=== PATIENT | male | born 1930 | race Caucasian/White ===

== ENCOUNTER 2016-06-27 09:26 | Inpatient (IN) | payer MEDICARE, BC ==
[~2016-06-27] VITALS: Ht 180.3 cm; Wt 78.0 kg
[~2016-06-27 09:26] MED LIST: AMOXICOT500 MG PO; ASPIRIN CHILDRE81 M1 PO; PRAVACHOL40 MG PO; ZINC SULFATE 2220 MG PO
[2016-06-27 09:36] VITALS: BP 144/75
[2016-06-27 10:12] LABS: LYMPH # 0.5 K/mm3 (0.7-4.5)
[2016-06-27 10:21] LABS: HEMOGLOBIN 14.1 g/dL (14.1-18.0)
[2016-06-27 10:34] LABS: FREE THYROXIN INDEX 5.6 ug/dl (5.93-13.13)
--- NOTE | 2016-06-27 10:47 | Emergency Room Report ---
History of Present Illness Time Seen by [id number] Presenting Problem in Triage Pt arrived:Wheelchair Presenting Problem:WEAK, FELL ON MONDAY WHILE WORKING OUTSIDE. WAS NOT FOUND UNTIL 45-60 MIN AFTER. 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 N Clinical Suspician of Infection? N Mental Status: 1 - Regular (Normal Baseline) Sepsis Risk:Low Sepsis Risk Have you (or family members/close friends) recently traveled outside the [place]? N If Yes, where/when: Have you had exposure to infectious disease within the past month? N TB? Other? Specify: Source patient, RN notes reviewed, family, RN/MD Exam Limitations no limitations Comment This is an 86-year-old gentleman brought into the emergency room by family with generalized weakness since Monday. According to family the patient was working outside, around the house on Monday when he fell and he was unable to get back on his feet, due to the extreme generalized weakness. He was found 45-60 minutes later and family noticed some slurred speech, and had no notable neurological deficits at that time. Since this event as the patient has been extremely weak and remained mostly bedridden. ALLERGIES Coded Allergies: No Known Allergies (06/25/16) Home Medications Active Scripts Amoxicillin (Amoxicillin 500MG) 500 MG PO TID #30 CAP Prov: 06/25/16 Reported Medications Aspirin 81 MG PO DAILY Zinc Sulfate (Zinc Sulfate 220MG) 220 MG PO DAILY Pravastatin Sodium (Pravachol) 40 MG PO QHS #30 Famotidine 40 MG PO BID #60 TAB Levothyroxine Sodium (Levothyroxine 0.025MG) 0.025 MG PO DAILY #30 TAB History Medical History General Angina: No [place]: No Hypertension? No Hyperlipidemia? Yes CHF? No COPD? No Asthma? No Hernia? Yes Thyroid Problems? No Hypothyroidism? No CVA? No Seizures? No Diabetes? No UTI? No Stones? No GB Disease: No Hepatitis? No Cataracts? No Glaucoma? No MRSA? No TB? No Cancer? Yes Site: PROSTATE [place] Immunization Hx DT/Tetanus UNKNOWN Flu THIS YR Pneumonia NEVER Surgical Hx Previous Surgery?Y LT ING HERNIA REPAIR SEED IMPLANT FOR PROSTATE [place] Family History Family Hx Diabetes Yes CAD No Hypertension No Hyperlipidemia No Cancer No TB No Social History Smoking Hx Smoker: Never Smoker Tobacco: No Alcohol Alcohol: No Review of Systems All Other Systems Reviewed and Negative Psychiatric/Neurological weakness Physical Exam Vital Signs Vital Signs Date Time Temp Pulse Resp B/P Pulse O2 O2 Flow FiO2 Ox Delivery Rate 06/27 1241 92 06/27 1241 98.4 92 18 155/85 06/27 1241 98.4 92 18 155/85 98 ROOM AIR 06/27 1241 98 ROOM AIR 06/27 1150 98.9 92 16 138/75 96 06/27 1107 98.9 92 16 138/75 96 06/27 1023 98.4 96 16 137/71 94 06/27 0936 99.1 102 16 144/75 96 General Appearance normal appearance, WD/WN, mild distress Neck normal inspection, non-tender, supple, full range of motion Respiratory Status Yes: trachea midline, chest symmetrical, non tender chest. No: respiratory distress. Lung Sounds bilateral: normal breath sounds, lungs clear. Cardiovascular normal exam, regular rate/rhythm, no peripheral edema, no gallop, no JVD, no murmur, no rub, normal peripheral pulses Peripheral Pulses Pulses normal Yes Extremities non-tender, normal range of motion, normal inspection Neurologic alert, automatic presser II-XII nml as tested, normal exam, oriented x 3 Mental status normal mood/affect Skin intact, normal color, warm/dry Medical Decision Making LABS/Meds/Orders Pt receiving controlled substance in ED? No Comment 10.45am-case discussed with Dr. Ware, advised of patient's presentation, workup results, vital signs, inability to stand and walk. Dr. Ware agreed with admission, and required additional tests to be ordered. Case started over to Dr. Ware at this time. I will write temporary bridge admit orders, per hospital policy. Upon patient's arrival to the floor, clinical unit educator/nurse will call Dr. Ware for full inpatient admit orders. Results/Orders Laboratory Tests 06/27/16 1125: Creatine Kinase 38655 H, CK-MB (CK-2) Rel Index 0.1, CK and CKMB Interp 23.3 *H , Troponin I 0.16 H 06/27/16 1115: Urine Color DK YELLOW, Urine Appearance SL CLOUDY, Urine pH 5.5, Ur Specific [place] >= 1.030, Urine Protein 2+ H, Urine Ketones TRACE H, Urine Blood 3+ H , Urine Nitrate NEGATIVE, Urine Bilirubin NEGATIVE, Urine Urobilinogen 0.2, Ur Leukocyte Esterase NEGATIVE, Urine RBC OCC, Urine WBC 3-5, Ur Squamous Epith Cells 3-5, Urine Bacteria 4+, Urine Mucus 1+, Urine Glucose NEGATIVE 06/27/16 1055: Chlamy pneum (TEM-PCR) NOT DETECTED, Adenovirus (PCR) NOT DETECTED, B. pertussis DNA (PCR) NOT DETECTED, Coronavirus OC43 (PCR) NOT DETECTED, Coronavirus HKU1 ( PCR) NOT DETECTED, Coronavirus 229E (PCR) NOT DETECTED, Coronavirus NL63 (PCR) NOT DETECTED, Human Metapneumovirus NOT DETECTED, Influenza A (H1) PCR NOT DETECTED, Influ A (H1N1/09) PCR NOT DETECTED, Influenza A (H3) PCR NOT DETECTED, Influenza Type A (PCR) NOT DETECTED, Influenza Type B (PCR) NOT DETECTED, M. pneumoniae (PCR) NOT DETECTED, Parainfluenza 1 (PCR) NOT DETECTED, Parainfluenza 2 (PCR) DETECTED H, Parainfluenza 3 (PCR) NOT DETECTED, Parainfluenza 4 (PCR) NOT DETECTED, RSV (PCR) NOT DETECTED, Entero/Rhino (PCR) NOT DETECTED 06/27/16934: TSH 2.86, Free T4 Index 5.6 L, Thyroxine (T4) 6.8, T3 Uptake 33 06/27/16934: Creatine Kinase 40269 H, CK-MB (CK-2) Rel Index 0.1, CK and CKMB Interp 23.4 *H , Myoglobin Pending, Troponin I 0.16 H 06/27/16934: Amylase 42, Lipase 78, Monoscreen NEGATIVE 06/27/16934: Sodium 140, Potassium 3.9, Chloride 107, Carbon Dioxide 26, BUN 23 H, Creatinine 1.2, Estimated Creat Clear 48 L, Estimated GFR (MDRD) 58, Glucose 149 H, Calcium 7.9 L, Total Bilirubin 0.6, AST 438 *H, ALT 149 H, Alkaline Phosphatase 66, Total Protein 6.1 L, Albumin 3.1 L, Globulin 3.0, Albumin/ Globulin Ratio 1.0 L, WBC 15.6 H, RBC 4.47 L, Hgb 14.1, Hct 40.6 L, MCV 90.9 , RDW 13.7, Plt Count 140 L, MPV 9.5, Gran % 92.4 H, Gran # 14.5 H, Total Counted 100, Lymphocytes % 3.0 L, Monocytes % 4.1, Eosinophils % 0.0 L, Basophils % 0.5, Neutrophils 94 H, Band Neutrophils 1, Lymphocytes (Manual) 3 L, Lymphocytes # 0.5 L, Monocytes (Manual) 2, Monocytes # 0.6, Eosinophils # 0.0, Basophils # 0.1, RBC/WBC/PLT Morphology NORMAL, Platelet Estimate NORMAL, PUBS MCHC 34.7, MCH 31.5 H, Hepatitis A Ab Total REACTIVE H, Hep Bs Antigen NON-REACTIVE, Hep Bs Antibody NON-REACTIVE, Hep B Core Total Ab NON-REACTIVE, Hepatitis C Antibody NON-REACTIVE, Salicylates 0.3 L, Acetaminophen 0 L Current Medication Orders Sig/Olena Start time Last Medication Dose Route Stop Time Status Admin Sodium Chloride 10 ML PRN PRN 06/27 1045 DC IV 06/28 1044 Sodium Chloride 10 ML PRN PRN 06/27 0945 AC 06/29 IV 0037 Orders Procedure Date/time Status CARDIAC ENZYMES 06/27 1999 Complete ADMITTED PT IS ACTUALLY IN BED 06/27 1314 Active 12 LEAD EKG-JACQUE (INITIAL) 06/27 1204 Active ELECTROCARDIOGRAM REQUEST 06/27 1128 Active CARDIAC ENZYMES 06/27 1128 Complete Decision to admit 06/27 1118 Active CULTURE, URINE 06/27 1115 Complete UPPER RESPIRATORY PANEL, PCR 06/27 1107 Complete SALICYLATE 06/27 1107 Complete Acetaminophen 06/27 1107 Complete MONO SCREEN 06/27 1106 Complete HEPATITIS PROFILE (A,B,&C) 06/27 1106 Complete URINALYSIS/COMPLETE 06/27 1045 Complete LIPASE 06/27 1045 Complete AMYLASE 06/27 1045 Complete MYOGLOBIN 06/27 1044 Active CARDIAC ENZYMES 06/27 1044 Active IV SALINE LOCK 06/27 1013 Active THYROID PANEL 2 (WITH TSH) 06/27 0946 Complete CBC WITH AUTO DIFF 06/27 0945 Complete CHEM 12 PROFILE 06/27 0945 Complete DIFFERENTIAL-WBC 06/27 0935 Complete VITAL SIGNS 06/27 UNK Active POM NURSE NANCY HOSE ORDER 06/27 UNK Active CODE STATUS 06/27 UNK Active PATIENT ACTIVITY ORDER 06/27 UNK Active CM/EKG CM/sys dir 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 of ischemic chgs, no ectopy, normal QRS, normal DC, no EKG for comparison, non-spec. ST/Twave chgs, ST elevation, ST depression, LBBB, RBBB, ectopy, abnormal Q waves XRAY/CT/US XRAY/CT/US XRAY chest XR interpretation by reviewed by me Xray Results no infiltrates, normal heart size, normal lung inflation chanel Departure Departure Time of Disposition 1109 Disposition Still a Patient Clinical Impression Primary Impression: Weakness generalized Secondary Impressions: Abnormal liver function tests Condition STABLE Referrals Arnaldo Ware MD (Family) ED Critical Care Critical Care No at 1021
--- NOTE | 2016-06-27 10:47 | Emergency Room Report ---
History of Present Illness Time Seen by [id number] Presenting Problem in Triage Pt arrived:Wheelchair Presenting Problem:WEAK, FELL ON MONDAY WHILE WORKING OUTSIDE. WAS NOT FOUND UNTIL 45-60 MIN AFTER. 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 N Clinical Suspician of Infection? N Mental Status: 1 - Regular (Normal Baseline) Sepsis Risk:Low Sepsis Risk Have you (or family members/close friends) recently traveled outside the [place]? N If Yes, where/when: Have you had exposure to infectious disease within the past month? N TB? Other? Specify: Source patient, RN notes reviewed, family, RN/MD Exam Limitations no limitations Comment This is an 86-year-old gentleman brought into the emergency room by family with generalized weakness since Monday. According to family the patient was working outside, around the house on Monday when he fell and he was unable to get back on his feet, due to the extreme generalized weakness. He was found 45-60 minutes later and family noticed some slurred speech, and had no notable neurological deficits at that time. Since this event as the patient has been extremely weak and remained mostly bedridden. ALLERGIES Coded Allergies: No Known Allergies (06/25/16) Home Medications Active Scripts Amoxicillin (Amoxicillin 500MG) 500 MG PO TID #30 CAP Prov: 06/25/16 Reported Medications Aspirin 81 MG PO DAILY Zinc Sulfate (Zinc Sulfate 220MG) 220 MG PO DAILY Pravastatin Sodium (Pravachol) 40 MG PO QHS #30 Famotidine 40 MG PO BID #60 TAB Levothyroxine Sodium (Levothyroxine 0.025MG) 0.025 MG PO DAILY #30 TAB History Medical History General Angina: No [place]: No Hypertension? No Hyperlipidemia? Yes CHF? No COPD? No Asthma? No Hernia? Yes Thyroid Problems? No Hypothyroidism? No CVA? No Seizures? No Diabetes? No UTI? No Stones? No GB Disease: No Hepatitis? No Cataracts? No Glaucoma? No MRSA? No TB? No Cancer? Yes Site: PROSTATE [place] Immunization Hx DT/Tetanus UNKNOWN Flu THIS YR Pneumonia NEVER Surgical Hx Previous Surgery?Y LT ING HERNIA REPAIR SEED IMPLANT FOR PROSTATE [place] Family History Family Hx Diabetes Yes CAD No Hypertension No Hyperlipidemia No Cancer No TB No Social History Smoking Hx Smoker: Never Smoker Tobacco: No Alcohol Alcohol: No Review of Systems All Other Systems Reviewed and Negative Psychiatric/Neurological weakness Physical Exam Vital Signs Vital Signs Date Time Temp Pulse Resp B/P Pulse O2 O2 Flow FiO2 Ox Delivery Rate 06/27 1241 92 06/27 1241 98.4 92 18 155/85 06/27 1241 98.4 92 18 155/85 98 ROOM AIR 06/27 1241 98 ROOM AIR 06/27 1150 98.9 92 16 138/75 96 06/27 1107 98.9 92 16 138/75 96 06/27 1023 98.4 96 16 137/71 94 06/27 0936 99.1 102 16 144/75 96 General Appearance normal appearance, WD/WN, mild distress Neck normal inspection, non-tender, supple, full range of motion Respiratory Status Yes: trachea midline, chest symmetrical, non tender chest. No: respiratory distress. Lung Sounds bilateral: normal breath sounds, lungs clear. 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 No Comment 10.45am-case discussed with Dr. Ware, advised of patient's presentation, workup results, vital signs, inability to stand and walk. Dr. Ware agreed with admission, and required additional tests to be ordered. Case started over to Dr. Ware at this time. I will write temporary bridge admit orders, per hospital policy. Upon patient's arrival to the floor, unit director/nurse will call Dr. Ware for full inpatient admit orders. Results/Orders Laboratory Tests 06/27/16 1125: Creatine Kinase 80553 H, CK-MB (CK-2) Rel Index 0.1, CK and CKMB Interp 23.3 *H , Troponin I 0.16 H 06/27/16 1115: Urine Color DK YELLOW, Urine Appearance SL CLOUDY, Urine pH 5.5, Ur Specific [place] >= 1.030, Urine Protein 2+ H, Urine Ketones TRACE H, Urine Blood 3+ H , Urine Nitrate NEGATIVE, Urine Bilirubin NEGATIVE, Urine Urobilinogen 0.2, Ur Leukocyte Esterase NEGATIVE, Urine RBC OCC, Urine WBC 3-5, Ur Squamous Epith Cells 3-5, Urine Bacteria 4+, Urine Mucus 1+, Urine Glucose NEGATIVE 06/27/16 1055: Chlamy pneum (TEM-PCR) NOT DETECTED, Adenovirus (PCR) NOT DETECTED, B. pertussis DNA (PCR) NOT DETECTED, Coronavirus OC43 (PCR) NOT DETECTED, Coronavirus HKU1 ( PCR) NOT DETECTED, Coronavirus 229E (PCR) NOT DETECTED, Coronavirus NL63 (PCR) NOT DETECTED, Human Metapneumovirus NOT DETECTED, Influenza A (H1) PCR NOT DETECTED, Influ A (H1N1/09) PCR NOT DETECTED, Influenza A (H3) PCR NOT DETECTED, Influenza Type A (PCR) NOT DETECTED, Influenza Type B (PCR) NOT DETECTED, M. pneumoniae (PCR) NOT DETECTED, Parainfluenza 1 (PCR) NOT DETECTED, Parainfluenza 2 (PCR) DETECTED H, Parainfluenza 3 (PCR) NOT DETECTED, Parainfluenza 4 (PCR) NOT DETECTED, RSV (PCR) NOT DETECTED, Entero/Rhino (PCR) NOT DETECTED 06/27/16934: TSH 2.86, Free T4 Index 5.6 L, Thyroxine (T4) 6.8, T3 Uptake 33 06/27/16934: Creatine Kinase 41161 H, CK-MB (CK-2) Rel Index 0.1, CK and CKMB Interp 23.4 *H , Myoglobin Pending, Troponin I 0.16 H 06/27/16934: Amylase 42, Lipase 78, Monoscreen NEGATIVE 06/27/16934: Sodium 140, Potassium 3.9, Chloride 107, Carbon Dioxide 26, BUN 23 H, Creatinine 1.2, Estimated Creat Clear 48 L, Estimated GFR (MDRD) 58, Glucose 149 H, Calcium 7.9 L, Total Bilirubin 0.6, AST 438 *H, ALT 149 H, Alkaline Phosphatase 66, Total Protein 6.1 L, Albumin 3.1 L, Globulin 3.0, Albumin/ Globulin Ratio 1.0 L, WBC 15.6 H, RBC 4.47 L, Hgb 14.1, Hct 40.6 L, MCV 90.9 , RDW 13.7, Plt Count 140 L, MPV 9.5, Gran % 92.4 H, Gran # 14.5 H, Total Counted 100, Lymphocytes % 3.0 L, Monocytes % 4.1, Eosinophils % 0.0 L, Basophils % 0.5, Neutrophils 94 H, Band Neutrophils 1, Lymphocytes (Manual) 3 L, Lymphocytes # 0.5 L, Monocytes (Manual) 2, Monocytes # 0.6, Eosinophils # 0.0, Basophils # 0.1, RBC/WBC/PLT Morphology NORMAL, Platelet Estimate NORMAL, PUBS MCHC 34.7, MCH 31.5 H, Hepatitis A Ab Total REACTIVE H, Hep Bs Antigen NON-REACTIVE, Hep Bs Antibody NON-REACTIVE, Hep B Core Total Ab NON-REACTIVE, Hepatitis C Antibody NON-REACTIVE, Salicylates 0.3 L, Acetaminophen 0 L Current Medication Orders Sig/Olena Start time Last Medication Dose Route Stop Time Status Admin Sodium Chloride 10 ML PRN PRN 06/27 1045 DC IV 06/28 1044 Sodium Chloride 10 ML PRN PRN 06/27 0945 AC 06/29 IV 0037 Orders Procedure Date/time Status CARDIAC ENZYMES 06/27 1999 Complete ADMITTED PT IS ACTUALLY IN BED 06/27 1314 Active 12 LEAD EKG-JACQUE (INITIAL) 06/27 1204 Active ELECTROCARDIOGRAM REQUEST 06/27 1128 Active CARDIAC ENZYMES 06/27 1128 Complete Decision to admit 06/27 1118 Active CULTURE, URINE 06/27 1115 Complete UPPER RESPIRATORY PANEL, PCR 06/27 1107 Complete SALICYLATE 06/27 1107 Complete Acetaminophen 06/27 1107 Complete MONO SCREEN 06/27 1106 Complete HEPATITIS PROFILE (A,B,&C) 06/27 1106 Complete URINALYSIS/COMPLETE 06/27 1045 Complete LIPASE 06/27 1045 Complete AMYLASE 06/27 1045 Complete MYOGLOBIN 06/27 1044 Active CARDIAC ENZYMES 06/27 1044 Active IV SALINE LOCK 06/27 1013 Active THYROID PANEL 2 (WITH TSH) 06/27 0946 Complete CBC WITH AUTO DIFF 06/27 0945 Complete CHEM 12 PROFILE 06/27 0945 Complete DIFFERENTIAL-WBC 06/27 0935 Complete VITAL SIGNS 06/27 UNK Active POM NURSE NANCY HOSE ORDER 06/27 UNK Active CODE STATUS 06/27 UNK Active PATIENT ACTIVITY ORDER 06/27 UNK Active CM/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 of ischemic chgs, no ectopy, normal QRS, normal CA, no EKG for comparison, non-spec. ST/Twave chgs, ST elevation, ST depression, LBBB, RBBB, ectopy, abnormal Q waves XRAY/CT/US XRAY/CT/US XRAY chest XR interpretation by reviewed by me Xray Results no infiltrates, normal heart size, normal lung inflation chanel Departure Departure Time of Disposition 1109 Disposition Still a Patient Clinical Impression Primary Impression: Weakness generalized Secondary Impressions: Abnormal liver function tests Condition STABLE Referrals Arnaldo Ware MD (Family) ED Critical Care Critical Care No at 1027
[2016-06-27 10:50] LABS: NEUTROPHILS 94 % (42-76)
[2016-06-27 11:10] LABS: CORONAVIRUS 229E NOT DETECTED (NOT DETECTE); CORONAVIRUS HKU 1 NOT DETECTED (NOT DETECTE); CORONAVIRUS NL63 NOT DETECTED (NOT DETECTE); CORONAVIRUS OC43 NOT DETECTED (NOT DETECTE); RHINOVIRUS/ENTEROVIRUS NOT DETECTED (NOT DETECTE)
[2016-06-27 11:43] LABS: URINE BILIRUBIN - DIPSTICK NEGATIVE (NEG); URINE BLOOD 3+ (NEG)
[2016-06-27 12:41] VITALS: BP 155/85
[2016-06-27 16:28] VITALS: BP 136/62
--- NOTE | 2016-06-27 17:19 | HISTORY AND PHYSICAL REPORT ---
Demographics: Admit date: 06/27/16 Chief complaint: Weakness PRIMARY DIAGNOSIS: rhabdomyolysis Allergies: Coded Allergies: No Known Allergies (06/25/16) History of present illness: History of present illness: 86-year-old male presented to the emergency department for the second time in 72 hours today with increasing weakness and inability to ambulate. Patient initially was seen in the emergency department on June 25 after a fall. The patient had been outside at his residence when he fell and was unable to get back up. He was found by family member after being down for about 45 minutes. He presented to the emergency department and underwent evaluation. Please refer to that note for full details. Patient was ultimately diagnosed with pharyngitis and discharged with amoxicillin. He spent his first night at home with family members. On Monday he continued to have increasing weakness and multiple falls. He returns today after his weakness was not improving. This time in the emergency department he was found to have elevated creatinine kinase as well as elevated liver function tests. Details of the fall are unclear as patient does not quite remember what happened. He fell in his yard. He does not remember whether he landed directly on his LEFT side possibly traumatizing the liver or not. Prior to these falls he has been relatively steady on his feet at home and denies any previous falls. Apparently the patient does shuffle his feet when walking but this has not prevented him from being able to mow his yard and weedeater is recently as this summer. Past medical history: Family HX Family Hx Insignificant No Diabetes Yes CAD No Hypertension No Hyperlipidemia No Cancer No TB No Immunization HX DT/Tetanus UNKNOWN Flu 2015-FSN Pneumonia NEVER TB Test in last year No General CAD? No Angina: No [place]: No Hypertension? No Hyperlipidemia? Yes CHF? No DVT? No PE? No COPD? No Asthma? No Anemia? No GERD? Yes Gastric ulcers? No GI Bleed? No Hernia? No Thyroid Problems? No Hypothyroidism? No CVA? No Seizures? No Diabetes? No Renal Insuffiency? No UTI? No Stones? No BPH? Yes GB Disease: No Nephritic Syndrome? No Asplenia? No Hepatitis? No Sickle Cell Disease? No Arthritis? No Migraines? No Cataracts? No Glaucoma? No MRSA? No HIV? No TB? No Anxiety? No Depression? No Cancer? Yes Site: PROSTATE More? No Past Surgical HX Previous Surgery?Y LT ING HERNIA REPAIR SEED IMPLANT FOR PROSTATE CA Current home meds: Active Scripts Amoxicillin (Amoxicillin 500MG) 500 MG PO TID #30 CAP Prov: 06/25/16 Reported Medications Pravastatin Sodium (Pravachol) 40 MG PO QHS #30 Aspirin (Aspirin, Chewable) 81 MG PO DAILY Zinc Sulfate (Zinc Sulfate 220MG) 220 MG PO DAILY Social Hx: Smoking HX Tobacco No Alcohol Alcohol: No Hx of Drug Use Drug Use? No Patien't marital status is Review of systems: Constitutional No: chills, diaphoresis, fever, malaise. Ears, Nose, Mouth, Throat throat pain Respiratory cough. Cardiovascular no symptoms reported Gastrointestinal/Abdominal no symptoms reported Genitourinary no symptoms reported. Musculoskeletal see HPI. Neurological Yes: no symptoms reported. Exam: Lab data for last 24 hours: Laboratory Tests 06/27/16 1125: Creatine Kinase 85249 H, CK-MB (CK-2) Rel Index 0.1, CK and CKMB Interp 23.3 *H , Troponin I 0.16 H 06/27/16 1115: Urine Color DK YELLOW, Urine Appearance SL CLOUDY, Urine pH 5.5, Ur Specific [place] >= 1.030, Urine Protein 2+ H, Urine Ketones TRACE H, Urine Blood 3+ H , Urine Nitrate NEGATIVE, Urine Bilirubin NEGATIVE, Urine Urobilinogen 0.2, Ur Leukocyte Esterase NEGATIVE, Urine RBC OCC, Urine WBC 3-5, Ur Squamous Epith Cells 3-5, Urine Bacteria 4+, Urine Mucus 1+, Urine Glucose NEGATIVE 06/27/16 1055: Chlamy pneum (TEM-PCR) NOT DETECTED, Adenovirus (PCR) NOT DETECTED, B. pertussis DNA (PCR) NOT DETECTED, Coronavirus OC43 (PCR) NOT DETECTED, Coronavirus HKU1 ( PCR) NOT DETECTED, Coronavirus 229E (PCR) NOT DETECTED, Coronavirus NL63 (PCR) NOT DETECTED, Human Metapneumovirus NOT DETECTED, Influenza A (H1) PCR NOT DETECTED, Influ A (H1N1/09) PCR NOT DETECTED, Influenza A (H3) PCR NOT DETECTED, Influenza Type A (PCR) NOT DETECTED, Influenza Type B (PCR) NOT DETECTED, M. pneumoniae (PCR) NOT DETECTED, Parainfluenza 1 (PCR) NOT DETECTED, Parainfluenza 2 (PCR) DETECTED H, Parainfluenza 3 (PCR) NOT DETECTED, Parainfluenza 4 (PCR) NOT DETECTED, RSV (PCR) NOT DETECTED, Entero/Rhino (PCR) NOT DETECTED 06/27/16934: TSH 2.86, Free T4 Index 5.6 L, Thyroxine (T4) 6.8, T3 Uptake 33 06/27/16934: Creatine Kinase 42238 H, CK-MB (CK-2) Rel Index 0.1, CK and CKMB Interp 23.4 *H , Troponin I 0.16 H 06/27/16934: Amylase 42, Lipase 78 06/27/16934: Sodium 140, Potassium 3.9, Chloride 107, Carbon Dioxide 26, BUN 23 H, Creatinine 1.2, Estimated Creat Clear 48 L, Estimated GFR (MDRD) 58, Glucose 149 H, Calcium 7.9 L, Total Bilirubin 0.6, AST 438 *H, ALT 149 H, Alkaline Phosphatase 66, Total Protein 6.1 L, Albumin 3.1 L, Globulin 3.0, Albumin/ Globulin Ratio 1.0 L, WBC 15.6 H, RBC 4.47 L, Hgb 14.1, Hct 40.6 L, MCV 90.9 , RDW 13.7, Plt Count 140 L, MPV 9.5, Gran % 92.4 H, Gran # 14.5 H, Total Counted 100, Lymphocytes % 3.0 L, Monocytes % 4.1, Eosinophils % 0.0 L, Basophils % 0.5, Neutrophils 94 H, Band Neutrophils 1, Lymphocytes (Manual) 3 L, Lymphocytes # 0.5 L, Monocytes (Manual) 2, Monocytes # 0.6, Eosinophils # 0.0, Basophils # 0.1, RBC/WBC/PLT Morphology NORMAL, Platelet Estimate NORMAL, PUBS MCHC 34.7, MCH 31.5 H, Monoscreen NEGATIVE, Salicylates 0.3 L, Acetaminophen 0 L Microbiology 06/27 1115 URINE CC: Urine Culture - RECD Admission vital signs: 1ST Vital Signs Result Date Time Pulse Ox 96 06/27 935 B/P 144/75 06/27 935 Temp 99.1 06/27 935 Pulse 102 06/27 935 Resp 16 06/27 935 O2 Delivery ROOM AIR 06/27 1241 Additional information: Patient is sitting up in bed and appears well. Oropharynx shows mild erythema. Neck is without any lymphadenopathy. Lungs are clear to auscultation. Heart has regular rate and rhythm. Abdomen is soft, nontender, nondistended. Patient does not have any tenderness of the upper or lower extremities nor does he display any significant restricted range of motion of the shoulders, elbows, fingers, hips, knees, ankles. Lower extremity strength is symmetric and 4+ out of 5 in regards to quadriceps, hamstring, ankle plantar flexors. Neurologically patient has intact motor and sensation functions. Cranial nerves are grossly intact. Plan: Problem List 1. Rhabdomyolysis 2. Abnormal liver function tests 3. Parainfluenza infection 4. Multiple falls 5. Elevated troponin Plan: I suspect rhabdomyolysis is the cause for most of his problems. He's developed an associated inflammatory hepatitis. Viral hepatitis panel has been drawn. Continue IV fluid hydration. Home medications have been ordered. Patient had an elevated troponin in the emergency department but on repeat testing it was stable. I have canceled the cardiology consult at 0181
[2016-06-27 19:56] VITALS: BP 149/73
[2016-06-28 04:00] VITALS: BP 152/78
[2016-06-28 05:53] LABS: LYMPH # 1.1 K/mm3 (0.7-4.5); LYMPH % 10.9 % (10-50)
[2016-06-28 06:02] LABS: HEMOGLOBIN 12.7 g/dL (14.1-18.0)
--- NOTE | 2016-06-28 08:11 | PHARMACY CLINIC NOTE ---
Patient Demographics Patient Demographics Admission date: 06/27/16 Date: 06/28/16 Allergies Coded Allergies: No Known Allergies (06/25/16) HEIGHT- FT: 5 IN: 11.00 K.019 VTE General Information Labs: Laboratory Tests 06/28 06/27 0541 0935 Hematology Hgb (14.1 - 18.0 g/dL) 12.7 L 14.1 Hct (42.0 - 52.0 %) 36.5 L 40.6 L Plt Count (142 - 424 K/mm3) 131 L 140 L Disclaimer The following section includes nursing documentation that has been pulled in for pharmacy review. Patient's VTE score: 1 Patient's VTE Risk: VERY LOW RISK Clinical trial participant? No VTE prophylaxis [id number] VTE prophylaxis ordered? Yes Type of prophylaxis/treatment: NANCY at 0811
[2016-06-28 08:12] VITALS: BP 158/71
[2016-06-28 09:20] VITALS: BP 158/71
--- NOTE | 2016-06-28 09:30 | ACUTE CARE PROGRESS NOTE (QUA) ---
Progress Notes Subjective Date 06/28/16 Time 0800 Note Patient resting in bed with family at bedside. He denies pain or discomfort. He reports ongoing hoarseness and onset of cough. He was positive for parainfluenza virus. Alert and oriented x3, with episodes of confusion. S1, S2, no edema. Pulses 2+ . Crackles RLL. Abdomen, soft non-tender with BS normoactive in all quads Patient/family reports: cough Nursing reports: no complaints Objective Findings Last VS-Temp:97.7 B/P:158/71 Pulse:89 Resp:16 SaO2:93 ROOM AIR Last weight lbs:172 oz:0 K.019 Method:Bed Scales Assessment/Plan Problem List 1. Rhabdomyolysis Assessment/Plan: CPK is contnuing to rise. Increase IVF to 150ml/hour. Will recheck CMP in the am Qualifiers: Rhabdomyolysis type: traumatic 2. Abnormal liver function tests Assessment/Plan: Liver enzymes are decreasing. Will recheck in the am. 3. Parainfluenza infection Assessment/Plan: Cough and hoarseness is most likely related to parainfluenza infection. With onset of cough and crackles in RLL will obtain CXR tomorrow after increased hydration. 4. Multiple falls Assessment/Plan: Most likely related to viral infection. Will have PT/Ot eval and treat 5. Elevated troponin Patient condition Stable Plan: continue current care (see above) This inpt stay is expected to cross 2 MNs from start of care Yes
[2016-06-28] MEDS ORDERED: FAMOTIDINE40 MG PO (10:34)
[2016-06-28] MEDS ORDERED: NAMZARIC1 ECC PO (10:34)
[2016-06-28] MEDS ORDERED: LEVOTHYROXIN0.025 M1 PO (10:35)
[2016-06-28 15:19] LABS: HEPATITIS A VIRUS ANTIBODY REACTIVE (NON-REACTIVE); HEPATITIS B SURFACE ANTIG NON-REACTIVE (NON-REACTIVE)
[2016-06-28 16:00] VITALS: BP 160/80
[2016-06-28 20:10] VITALS: BP 155/95
[2016-06-28 20:20] VITALS: BP 155/95
[2016-06-29 04:15] VITALS: BP 144/77
[2016-06-29 06:11] LABS: HEMOGLOBIN 12.9 g/dL (14.1-18.0); LYMPH # 0.9 K/mm3 (0.7-4.5); LYMPH % 8.8 % (10-50)
--- NOTE | 2016-06-29 07:30 | ACUTE CARE PROGRESS NOTE (QUA) ---
Progress Notes Subjective Date 06/29/16 Time 0729 Note Patient is pleasant talkative, and about to eat breakfast. He has no significant pains. PT note reviewed from yesterday. Lungs are clear in the anterior chapa, heart rate regular. Patient still exhibits a little bit of ataxia type symptoms in his trunk. Objective Findings Last VS-Temp:98.5 B/P:144/77 Pulse:85 Resp:20 SaO2:92 ROOM AIR Last weight lbs:172 oz:0 K.019 Method:Bed Scales Assessment/Plan Problem List 1. Rhabdomyolysis Qualifiers: Rhabdomyolysis type: traumatic 2. Abnormal liver function tests 3. Parainfluenza infection 4. Multiple falls 5. Elevated troponin Patient condition Improving Plan: continue current care, labs better, continue fluids, watch creatinine kinase tomorrow. Consider long-term care transfer for PT given his recent falls. This inpt stay is expected to cross 2 MNs from start of care Yes at 0730
[2016-06-29 08:02] VITALS: BP 138/77
--- NOTE | 2016-06-29 09:05 | RADIOLOGY REPORT PS360 ---
CHEST(2 VIEWS-NOT PORTABLE) COMPARISON: AP supine chest 06/25/2016 HISTORY: Cough and crackles right chest TECHNIQUE: PA and lateral chest FINDINGS: There has been a definite change from the previous chest film 25 June. There now is a patchy ill-defined pneumonic infiltrate in the right perihilar region and right upper lobe and there probably is some minimal right lower lobe involvement as well. There is a small right pleural effusion which was not seen on the previous study just causing mild blunting of the right costo phrenic angle. The left lung field remains clear though there may be minimal atelectasis at the left costo phrenic angle. There is moderate aortic tortuosity with borderline cardiomegaly but is no evidence of failure. IMPRESSION: Interval development of diffuse pneumonia involving the right perihilar region and right upper lobe with minimal involvement right lower lobe as well and suggest continued follow-up
[2016-06-29 16:00] VITALS: BP 151/80
[2016-06-29 19:48] VITALS: BP 151/72
[2016-06-30 04:04] VITALS: BP 157/86
[2016-06-30 06:28] LABS: HEMOGLOBIN 12.8 g/dL (14.1-18.0); LYMPH % 10.4 % (10-50)
--- NOTE | 2016-06-30 08:37 | DISCHARGE SUMMARY STANDARD ---
Demographics Admit date: 06/27/16 Discharge date: 06/30/16 History of present illness History of present illness 86-year-old male presented to the emergency department for the second time in 72 hours today with increasing weakness and inability to ambulate. Patient initially was seen in the emergency department on June 25 after a fall. The patient had been outside at his residence when he fell and was unable to get back up. He was found by family member after being down for about 45 minutes. He presented to the emergency department and underwent evaluation. Please refer to that note for full details. Patient was ultimately diagnosed with pharyngitis and discharged with amoxicillin. He spent his first night at home with family members. On Monday he continued to have increasing weakness and multiple falls. He returns today after his weakness was not improving. This time in the emergency department he was found to have elevated creatinine kinase as well as elevated liver function tests. Details of the fall are unclear as patient does not quite remember what happened. He fell in his yard. He does not remember whether he landed directly on his LEFT side possibly traumatizing the liver or not. Prior to these falls he has been relatively steady on his feet at home and denies any previous falls. Apparently the patient does shuffle his feet when walking but this has not prevented him from being able to mow his yard and weedeater is recently as this summer. Hospital Course Hospital Course: Patient was given normal saline infusions aggressively with significant improvement of liver enzymes and CPK. He has improved nicely with ALT 113 down from 149, AST 162 down from 438. Initial CPK was 19,476, today noted at 2,627. Physical therapy was consulted and agree patient needs additional rehabilitation to prevent future falls. Today, he is feeling well with no concerns or complaints. Discharge to [facility] for rehab. PT/OT eval and treat. CBC, CMP and CPK and Monday07/04/16. FU with Dr. Debbie Fry in 1 week. Discharge diagnoses Problem List 1. Rhabdomyolysis Comments Will recheck CPK on Monday. 2. Abnormal liver function tests Comments Will check CMP on Monday. 3. Parainfluenza infection Comments Resolved. No symptoms. 4. Multiple falls Comments [facility] for rehab. PT/OT eval and treat 5. Elevated troponin Medications Medications: Discharge meds are as noted. Follow up Follow up in office in: 7 DAYS with: DEBBIE FRY
[2016-06-30 08:40] VITALS: BP 141/69
[2016-06-30 10:31] VITALS: BP 141/69
== END 2016-06-30 12:30 | DRG 566 ==
LOC: ER 09:26 → ICU 11:27 → ER 11:27 → ICU 11:50
PROVIDERS: Emergency Medicine; Family Medicine; Internal Medicine Adolescent Medicine
DX: T79.6XXA Traumatic ischemia of muscle, initial encounter (principal); J11.1 Influenza due to unidentified influenza virus with other respiratory manifestations; Z91.81 History of falling; W18.39XA Other fall on same level, initial encounter; R79.89 Other specified abnormal findings of blood chemistry; R26.0 Ataxic gait

== ENCOUNTER 2016-08-04 13:13 | Emergency (ER) | payer MEDICARE, BC ==
[~2016-08-04] VITALS: Ht 180.3 cm; Wt 74.8 kg
[~2016-08-04 13:13] MED LIST changes: +FAMOTIDINE40 MG PO; +LEVOTHYROXIN0.025 M1 PO; +NAMZARIC1 ECC PO
[2016-08-04] MEDS ORDERED: PRAVACHOL40 MG PO (13:41)
[2016-08-04 14:17] LABS: URINE BILIRUBIN - DIPSTICK NEGATIVE (NEG)
[2016-08-04 14:18] LABS: URINE BLOOD TRACE (NEG)
--- NOTE | 2016-08-04 14:30 | Urgent Treatment Center Report ---
History of Present Issue Date/Time Seen by Provider 08/04/16 1415 Visit Reason Pt arrived:Walked Presenting Problem:PT STATES HISTORY OF PROSTATE CANCER. STATES HE HAS BEEN GETTING UP TO GO TO THE RESTROOM AT NIGHT. STATES FEELING "FINISHED" WHEN HE IS DONE URINATING. STATES FEELING URGE TO USE RESTROOM WHEN HE TURNS OVER. STATES AMOUNT TIMES TO VOID VARIES. DENIES BURNING OR PAIN WITH URINATION Location if Accident: Onset of symptoms date/time:/ or onset unknown for:MEDICAL HX UNKNOWN Have you (or family members/close friends) recently traveled outside the [place]? N If Yes, where/when: Have you had exposure to infectious disease within the past month? TB? Other? Specify: c/o urinary frequency x "about 2 weeks". Denies dysuria, fever, chills, abd pain , nausea, change in urine color or odor. Worse at night. Denies difficulty starting or stopping stream and no change to pressure of stream. Hx of prostate CA "about 12 years ago" treated w/ seed radiation. Hasn't taken or tried anything for symptoms. Source patient Exam Limitations no limitations ALLERGIES Coded Allergies: No Known Allergies (06/25/16) Home Medications Reported Medications Aspirin 81 MG PO DAILY Pravastatin Sodium (Pravachol) 40 MG PO QHS #30 Famotidine 40 MG PO BID #60 TAB Levothyroxine Sodium (Levothyroxine 0.025MG) 0.025 MG PO DAILY #30 TAB History Medical History General CAD? No Angina: No CT: No Hypertension? No Hyperlipidemia? Yes CHF? No DVT? No PE? No COPD? No Asthma? No Anemia? No GERD? Yes Gastric ulcers? No GI Bleed? No Hernia? No Thyroid Problems? No Hypothyroidism? No CVA? No Seizures? No Diabetes? No Renal Insuffiency? No UTI? No Stones? No BPH? Yes GB Disease: No Nephritic Syndrome? No Asplenia? No Hepatitis? No Sickle Cell Disease? No Arthritis? No Migraines? No Cataracts? No Glaucoma? No MRSA? No HIV? No TB? No Anxiety? No Depression? No Cancer? Yes Site: PROSTATE More? No Immunization HX DT/Tetanus UNKNOWN Flu 2015- Flu Season Pneumonia Received In Past Surgical Hx Previous Surgery?Y LT ING HERNIA REPAIR SEED IMPLANT FOR PROSTATE CA Family History Family HX Diabetes Yes CAD No Hypertension No Hyperlipidemia No Cancer No TB No Social History Smoking Hx Smoker: Never Smoker Tobacco: No Alcohol Alcohol: No Review of Systems All Other Systems Reviewed and Negative Constitutional denies fever, denies malaise Gastrointestinal denies abdominal pain, denies diarrhea, denies nausea, denies vomiting Genitourinary denies: discharge, dysuria, hesitancy, hematuria, pain, penis tenderness. Physical Exam Vital Signs Vital Signs Date Time Temp Pulse Resp B/P Pulse O2 O2 Flow FiO2 Ox Delivery Rate 08/04 1438 97.3 82 20 170/86 97 08/04 1339 97.3 82 20 170/86 97 08/04 1319 97.3 82 20 170/ 97 General Appearance normal appearance, active Ear, Nose, Throat [place] Respiratory Status No: respiratory distress. Cardiovascular no peripheral edema Gastrointestinal normal bowel sounds, normal exam, non tender, soft, no suprapubic tenderness, bladder not palpable Neurologic alert Medical Decision Making LABS/Meds/Orders Pt receiving controlled substance in ED? No Results/Orders Laboratory Tests 08/04/16 1354: Urine Color YELLOW, Urine Appearance Clear, Urine pH 7.0, Ur Specific [place] 1.020, Urine Protein NEGATIVE, Urine Ketones NEGATIVE, Urine Blood TRACE H, Urine Nitrate NEGATIVE, Urine Bilirubin NEGATIVE, Urine Urobilinogen 0.2, Ur Leukocyte Esterase NEGATIVE, Urine Glucose NEGATIVE Orders Procedure Date/time Status CULTURE, URINE 08/04 1425 Active [facility] URINE DIPSTICK 08/04 135 Complete Departure Departure Time of Disposition 1425 Disposition DC Home or Self Care(routine) Clinical Impression Primary Impression: Microscopic hematuria Condition STABLE Referrals Arnaldo Ware MD (Family) Call today for appt. Culture results will take 2-3 days. Patient Instructions DI for Hematuria Additional Instructions Be sure to follow up with Dr. Ware. If this is infection, you will need an antibiotic. If this is not infection, you will need additional workup. Discharge Counseling Counseled pt/family regarding diagnosis, test results, home care, follow up needs at 0802
--- NOTE | 2016-08-04 14:30 | Urgent Treatment Center Report ---
History of Present Issue Date/Time Seen by Provider 08/04/16 1415 Visit Reason Pt arrived:Walked Presenting Problem:PT STATES HISTORY OF PROSTATE CANCER. STATES HE HAS BEEN GETTING UP TO GO TO THE RESTROOM AT NIGHT. STATES FEELING "FINISHED" WHEN HE IS DONE URINATING. STATES FEELING URGE TO USE RESTROOM WHEN HE TURNS OVER. STATES AMOUNT TIMES TO VOID VARIES. DENIES BURNING OR PAIN WITH URINATION Location if Accident: Onset of symptoms date/time:/ or onset unknown for:MEDICAL HX UNKNOWN Have you (or family members/close friends) recently traveled outside the [place]? N If Yes, where/when: Have you had exposure to infectious disease within the past month? TB? Other? Specify: c/o urinary frequency x "about 2 weeks". Denies dysuria, fever, chills, abd pain , nausea, change in urine color or odor. Worse at night. Denies difficulty starting or stopping stream and no change to pressure of stream. Hx of prostate CA "about 12 years ago" treated w/ seed radiation. Hasn't taken or tried anything for symptoms. Source patient Exam Limitations no limitations ALLERGIES Coded Allergies: No Known Allergies (06/25/16) Home Medications Reported Medications Aspirin 81 MG PO DAILY Pravastatin Sodium (Pravachol) 40 MG PO QHS #30 Famotidine 40 MG PO BID #60 TAB Levothyroxine Sodium (Levothyroxine 0.025MG) 0.025 MG PO DAILY #30 TAB History Medical History General CAD? No Angina: No [place]: No Hypertension? No Hyperlipidemia? Yes CHF? No DVT? No PE? No COPD? No Asthma? No Anemia? No GERD? Yes Gastric ulcers? No GI Bleed? No Hernia? No Thyroid Problems? No Hypothyroidism? No CVA? No Seizures? No Diabetes? No Renal Insuffiency? No UTI? No Stones? No BPH? Yes GB Disease: No Nephritic Syndrome? No Asplenia? No Hepatitis? No Sickle Cell Disease? No Arthritis? No Migraines? No Cataracts? No Glaucoma? No MRSA? No HIV? No TB? No Anxiety? No Depression? No Cancer? Yes Site: PROSTATE More? No Immunization HX DT/Tetanus UNKNOWN Flu 2015- Flu Season Pneumonia Received In Past Surgical Hx Previous Surgery?Y LT ING HERNIA REPAIR SEED IMPLANT FOR PROSTATE CA Family History Family HX Diabetes Yes CAD No Hypertension No Hyperlipidemia No Cancer No TB No Social History Smoking Hx Smoker: Never Smoker Tobacco: No Alcohol Alcohol: No Review of Systems All Other Systems Reviewed and Negative Constitutional denies fever, denies malaise Gastrointestinal denies abdominal pain, denies diarrhea, denies nausea, denies vomiting Genitourinary denies: discharge, dysuria, hesitancy, hematuria, pain, penis tenderness. Physical Exam Vital Signs Vital Signs Date Time Temp Pulse Resp B/P Pulse O2 O2 Flow FiO2 Ox Delivery Rate 08/04 1438 97.3 82 20 170/86 97 08/04 1339 97.3 82 20 170/86 97 08/04 1319 97.3 82 20 170/ 97 General Appearance normal appearance, active Ear, Nose, Throat [place] Respiratory Status No: respiratory distress. Cardiovascular no peripheral edema Gastrointestinal normal bowel sounds, normal exam, non tender, soft, no suprapubic tenderness, bladder not palpable Neurologic alert Medical Decision Making LABS/Meds/Orders Pt receiving controlled substance in ED? No Results/Orders Laboratory Tests 08/04/16 1354: Urine Color YELLOW, Urine Appearance Clear, Urine pH 7.0, Ur Specific [place] 1.020, Urine Protein NEGATIVE, Urine Ketones NEGATIVE, Urine Blood TRACE H, Urine Nitrate NEGATIVE, Urine Bilirubin NEGATIVE, Urine Urobilinogen 0.2, Ur Leukocyte Esterase NEGATIVE, Urine Glucose NEGATIVE Orders Procedure Date/time Status CULTURE, URINE 08/04 1425 Active [facility] URINE DIPSTICK 08/04 135 Complete Departure Departure Time of Disposition 1425 Disposition DC Home or Self Care(routine) Clinical Impression Primary Impression: Microscopic hematuria Condition STABLE Referrals Arnaldo Ware MD (Family) Call today for appt. Culture results will take 2-3 days. Patient Instructions DI for Hematuria Additional Instructions Be sure to follow up with Dr. Ware. If this is infection, you will need an antibiotic. If this is not infection, you will need additional workup. Discharge Counseling Counseled pt/family regarding diagnosis, test results, home care, follow up needs at [phone]
[2016-08-04 14:38] VITALS: BP 170/86
== END 2016-08-04 14:38 | disposition home or self-care (01) ==
LOC: ER 13:13 → UTC 13:28 → ER 13:28 → UTC 14:38
PROVIDERS: Nurse Practitioner Family
DX: R31.29 Other microscopic hematuria (principal); C61 Malignant neoplasm of prostate

== ENCOUNTER 2017-04-19 16:48 | Emergency (ER) | payer OTHER, MEDICARE, BC ==
[~2017-04-19] VITALS: Ht 180.3 cm; Wt 74.8 kg
--- OUTSIDE RECORDS SUMMARY | 2017-04-19 17:03 | External Medical Summary Rpt | CCD ---
Author Author , JORGE PATEL Address Unknown Phone [email or web address] Immunization Name Date Rout CVX Reac Dose Comm Prov Is Faci e tion ent ider Refu lity Give sed n Infl 10-1 Intr 0.5 Hist PD20 No PD20 uenz 0-20 amus mL oric 256 256 a 17 cula al Quad r Info rmat W/Pr ion es - Sour ce Unsp ecif ied
--- OUTSIDE RECORDS SUMMARY | 2017-04-19 17:03 | External Medical Summary Rpt | CCD ---
Author Author , JORGE PATEL Address Unknown Phone [email or web address] Immunization Name Date Rout CVX Reac Dose Comm Prov Is Faci e tion ent ider Refu lity Give sed n Infl 10-1 Intr 0.5 Hist PD20 No PD20 uenz 0-20 amus mL oric 256 256 a 17 cula al Quad r Info rmat W/Pr ion es - Sour ce Unsp ecif ied
--- OUTSIDE RECORDS SUMMARY | 2017-04-19 17:03 | External Medical Summary Rpt | CCD ---
Author Author JORGE Address Unknown Phone [email or web address] Purpose Continuity of Care Document - through 2016
--- OUTSIDE RECORDS SUMMARY | 2017-04-19 17:03 | External Medical Summary Rpt ---
Author Author JORGE Blevins, [employer] Organization [employer] Address Unknown Phone Unavailable
--- OUTSIDE RECORDS SUMMARY | 2017-04-19 17:03 | External Medical Summary Rpt | CCD ---
Author Author [employer] Organization [employer] Address Unknown Phone Unavailable Purpose Continuity of Care Document - through 2016
--- OUTSIDE RECORDS SUMMARY | 2017-04-19 17:03 | External Medical Summary Rpt | CCD ---
Author Author JORGE Address Unknown Phone Purpose Continuity of Care Document - through 2016
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
[2017-04-19 18:45] VITALS: BP 170/70
== END 2017-04-19 18:46 | disposition home or self-care (01) ==
LOC: ER 16:48
DX: S00.432A Contusion of left ear, initial encounter (principal); S80.219A Abrasion, unspecified knee, initial encounter; M54.2 Cervicalgia; M54.6 Pain in thoracic spine; V87.7XXA Person injured in collision between other specified motor vehicles (traffic), initial encounter; Z79.82 Long term (current) use of aspirin; E78.5 Hyperlipidemia, unspecified; K21.9 Gastro-esophageal reflux disease without esophagitis